=== PATIENT | female | born 1985 | race Caucasian/White ===

== ENCOUNTER → 2021-09-20 07:50 | Outpatient (BNVA) | payer BC, SELFPAY | PROVIDERS: Family Provider Family Medicine; Visit Provider Specialist | DX: R20.0 Anesthesia of skin (principal); R20.2 Paresthesia of skin; M79.645 Pain in left finger(s); M25.532 Pain in left wrist; G25.5 Other chorea; F17.200 Nicotine dependence, unspecified, uncomplicated | CPT/HCPCS: 95886; 95908; 99202; 99204 ==

== ENCOUNTER 2021-09-20 09:23 | Outpatient (CLI) | payer BC, SELFPAY ==
[2021-09-20 10:42] LABS: Thyroid Stimulating Hormone 1.16 uIU/mL (0.27-4.20)
[2021-09-20 13:05] LABS: Free T4 Free Thyroxine 1.21 ng/dL (0.82-1.77)
[2021-09-22 19:31] LABS: Erythrocyte Sedimentation Rate 2 mm/hr (0-15)
== END 2021-09-20 09:24 | disposition home or self-care (01) ==
PROVIDERS: PCP Physician Assistant Medical; Visit Provider Specialist
DX: R20.0 Anesthesia of skin (principal); R20.2 Paresthesia of skin
CPT/HCPCS: 84439; 84443; 85651

== ENCOUNTER 2025-09-20 22:13 | Emergency (ER) | payer OTHER, SELFPAY ==
[2025-09-20 22:15] VITALS: BP 147/76; PULSE 99; RESP 20; TEMP 36.4; O2SAT 100; BMI 21.0
--- OUTSIDE RECORDS SUMMARY | 2025-09-20 22:21 | XMS_ITS | Clinical Summary ---
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 90 Capsule 3 01/06/2021 Active Active Problems Problem Noted Date Diagnosed Date Tobacco use 08/22/2015 LUBA (generalized anxiety disorder) 10/01/2012 Depressive disorder 09/18/2012 Contraceptive management 07/11/2011 Heartburn 07/11/2011 Pelvic pain in female 07/11/2011 Immunizations Immunization Administration Dates Next Due Hepatitis B Vaccine 01/30/2002,08/10/1999,1998 INFLUENZA VACCINE QUADRIVALE NT 3 YR UP PF IM 09/16/2018 09/16/2019 Influenza Seasonal Unspecifi ed Formulation IM 08/26/2020 Family History Medical History Relation Name Comments Emphysema Father Hypertension Maternal Grandfather Cancer Maternal Uncle Relation Name Status Comments Father Maternal Grandfather Maternal Uncle Social History Tobacco Use Types Packs/Day Years Used Date Smoking Tobacco: Every Day Cigarettes Cigars Smokeless Tobacco: Never Tobacco Cessation:Ready to Q uit: No; Counseling Given: Yes Alcohol Use Standard Drinks/Week Comments No 0 (1 standard drink = 0.6 oz pur e alcohol) Comments No Sex and Gender Information Value Date Recorded Sex Assigned at Not on file Legal Sex Female 11:06 AM 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 SPECIALIST Gender Identity Not on file Sexual Orientation Not on file Occupation Industry Job Start Date Job End Date Not on file Not on file Not on file Not on file Last Filed Vital Signs Vital Sign Reading Time Taken Comments Blood Pressure 120/80 01/06/2021 1:51 PM PST SPECIALIST Pulse 110 01/06/2021 1:51 PM PST SPECIALIST Temperature 36.8 C (98.2 F) 01/06/2021 1:51 PM PST SPECIALIST Respiratory Rate 28 01/06/2021 1:51 PM PST SPECIALIST Oxygen Saturation 98% 01/06/2021 1:51 PM PST SPECIALIST Inhaled Oxygen Concentration - - Weight 51.2 kg (112 lb 12.8 oz) 01/06/2021 1:51 PM PST SPECIALIST Height 160 cm (5' 3 ) 01/06/2021 1:51 PM PST SPECIALIST Body Mass Index 19.98 01/06/2021 1:51 PM PST SPECIALIST Plan of Treatment Health Maintenance Due Date Last Done Comments DTAP/TDAP/TD VACCINES (1 - Tdap) 2005 HPV/Cotest (21-29) 2007 HPV VACCINES (1 - 3-dose SCDM series) 2013 CERVICAL CANCER SCREENING 2016 HPV/Cotest (30-65) 2016 PAP SMEAR 2016 Preventative Visit- Commercial 11/12/2024 INFLUENZA VACCINE (#1) 2025 08/26/2020, 2017 HEPATITIS B VACCINES Completed 01/30/2002, 08/10/1999, 07/06/1999 Insurance [employer](X) EXCHANGE Care Teams 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
--- OUTSIDE RECORDS SUMMARY | 2025-09-20 22:21 | XMS_ITS | Clinical Summary ---
Author Organization [facility] Address [address] Childsn: Epic Prelude ADT [place] [id number] Care Team Providers Care Wood Technologist Name Role Phone Edgard Flores MD Primary Care Provider [phone] Allergies Active Allergy Reactions Criticality Noted Date Comments Dicyclomine Swelling Low 10/24/2010 Levsin With Phenobarbital Anaphylaxis High 1 Medications gabapentin (NEURONTIN) 300 mg capsule Take 1 Capsule (300 mg) by mouth 3 times daily. 90 Capsule 3 3 Active Additional Information Patient not taking.Reported on 03/06/2024 cholecalciferol 1,250 mcg (50,000 unit) CapsuleIndicati ons:Vitamin D deficiency Take 1 Capsule (50,000 Units) by mouth every 7 days. 12 Capsule 3 4 Active Additional Information Patient not taking.Reported on 07/06/2025 DULoxetine 40 mg Capsule, Delayed Release(E.C.)In dications:Pares thesia of left upper extremity,LUBA (generalized anxiety disorder) take 1 capsule by mouth daily 90 Capsule 2 4 Active Additional Information Patient not taking.Reported on 07/06/2025 Active Problems Problem Noted Date Diagnosed Date Vitamin D deficiency 03/12/2024 Pure hypercholesterolemia 03/12/2024 Paresthesia of left upper extremity 03/06/2024 Colonic mass 08/20/2022 Tobacco use 08/22/2015 LUBA (generalized anxiety disorder) 10/01/2012 Depressive disorder 09/18/2012 Pelvic pain in female 07/11/2011 Heartburn 07/11/2011 Resolved Problems Problem Noted Date Diagnosed Date Resolved Date Acute diverticulitis 08/20/2022 024 Contraceptive management 07/11/2011 Encounters Date Type Department Care Team Description 09/02/2025 External Device Data ST[facility] ABSTRACTION Provider, Abstract 07/28/2025 External Device Data [facility] ABSTRACTION Provider, Abstract 07/28/2025 External Device Data [facility] ABSTRACTION Provider, Abstract 07/07/2025 External Device Data [facility] ABSTRACTION Provider, Abstract 07/06/2025 2:20 PM CDT Office Visit [facility] [address] [phone] Praveena Mckeon, ELADIO Tooth infection (Primary Dx) from Last 3 Months Immunizations Immunization Administration Dates Next Due Hepatitis B Vaccine 01/30/2002,08/10/1999,1998 INFLUENZA VACCINE QUADRIVALE NT 3 YR UP PF IM 09/16/2018 Influenza Seasonal Unspecifi ed Formulation IM 08/26/2020 Family History Medical History Relation Name Comments Emphysema Father Hypertension Maternal Grandfather Cancer Maternal Uncle Relation Name Status Comments Father Maternal Grandfather Maternal Uncle Social History Tobacco Use Types Packs/Day Years Used Date Smoking Tobacco: Every Day Cigarettes Smokeless Tobacco: Never Tobacco Cessation:Ready to Q uit: Not Asked; Counseling Given: Not Answered Alcohol Use Standard Drinks/Week Comments No 0 (1 standard drink = 0.6 oz pur e alcohol) Comments No Sex and Gender Information Value Date Recorded Sex Assigned at Not on file 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 Gender Identity Not on file Sexual Orientation Not on file Last Filed Vital Signs Vital Sign Reading Time Taken Comments Blood Pressure 133/87 07/06/2025 2:00 PM CDT Pulse 77 07/06/2025 2:00 PM CDT Temperature 36.8 C (98.2 F) 07/06/2025 2:00 PM CDT Respiratory Rate 17 07/06/2025 2:00 PM CDT Oxygen Saturation 100% 07/06/2025 2:00 PM CDT Inhaled Oxygen Concentration - - Weight 48.4 kg (106 lb 12.8 oz) 07/06/2025 2:00 PM CDT Height 160 cm (5' 3 ) 07/06/2025 2:00 PM CDT Body Mass Index 18.92 07/06/2025 2:00 PM CDT Plan of Treatment Health Maintenance Due Date Last Done Comments DTAP/TDAP/TD VACCINES (1 - Tdap) 2005 HPV/Cotest (21-29) 2007 HPV VACCINES (1 - 3-dose SCD M series) 2013 CERVICAL CANCER SCREENING 2016 HPV/Cotest (30-65) 2016 PAP SMEAR 2016 Preventative Visit- Commercial 11/12/2024 INFLUENZA VACCINE (#1) 2025 08/26/2020, 2017 HEPATITIS B VACCINES Completed 01/30/2002, 01/30/2002, 08/10/1999, Additional history exists [facility] Care Teams Wood Technologist Relationship Specialty Start Date End Date Edgard Flores MD [address] [facility] [address] [place] [address] PCP - General Family Practice 07/06/25
--- NOTE | 2025-09-20 22:44 | CTR_ITS ---
PROCEDURE INFORMATION: Exam: CT Abdomen And Pelvis With Contrast Exam date and time: 09/20/2025 11:16 PM Age: 40 years old Clinical indication: Pain and abnormal findings; Abnormal lab test; Elevated wbc; Abdominal pain; Generalized; Diffuse abd pain with leukocytosis. ; Additional info: Diffuse abdominal pain TECHNIQUE: Imaging protocol: Computed tomography of the abdomen and pelvis with contrast. Radiation optimization: All CT scans at this facility use at least one of these dose optimization techniques: automated exposure control; mA and/or kV adjustment per patient size (includes targeted exams where dose is matched to clinical indication); or iterative reconstruction. Contrast material: OMNI 350; Contrast volume: 80 ml; Contrast route: INTRAVENOUS (IV); COMPARISON: No relevant prior studies available. RADIATION DOSE METRICS: Total DLP (mGy-cm): 301.03 FINDINGS: Liver: Normal. No mass. Gallbladder and biliary ducts: Normal. No calcified stones. No ductal dilation. Pancreas: Normal. No ductal dilation. Spleen: Normal. No splenomegaly. Adrenal glands: Normal. No mass. Kidneys and ureters: Normal. No hydronephrosis. Stomach and bowel: Diverticulosis, without acute diverticulitis. No small bowel obstruction. No free air. Appendix: No evidence of appendicitis. Intraperitoneal space: See Stomach and bowel finding. Vasculature: Unremarkable. No abdominal aortic aneurysm. Lymph nodes: Unremarkable. No enlarged lymph nodes. Urinary bladder: Mild wall thickening of the urinary bladder, correlate for UTI. Reproductive: Unremarkable as visualized. Bones/joints: Unremarkable. No acute fracture. Soft tissues: Unremarkable. CT/CT abdomen pelvis w con* [id number] IMPRESSION: 1. Diverticulosis, without acute diverticulitis. No small bowel obstruction. No free air. 2. Mild wall thickening of the urinary bladder, correlate for UTI.
--- NOTE | 2025-09-20 22:44 | ED_ITS ---
HPI - Abdominal Pain 2 General: Chief Complaint: Abdominal Pain Stated Complaint: ABD Time Seen by Provider: 09/20/25 22:25 Source: patient Mode of arrival: ambulatory Limitations: no limitations History of Present Illness: Patient is a 40-year-old female who presents to ED today with a complaint of diffuse abdominal pain over the past 3 days. Patient feels like her pain is sharp and crampy in nature and has progressively worsened since onset. She has not had any episodes of vomiting. She denies any changes in her bowel habits. She does feel like her pain is worse with movement, coughing, laughing, car rides, etc. She has not found any alleviating factors to her discomfort. She does states she is still able to eat and drink. She is passing flatulence. She has not been running fevers. Denies previous abdominal surgeries. She states her LMP was 3 weeks ago. She states she is sexually monogamous with her of 20 years-no concern for STI. Denies vaginal odor or vaginal discharge. She denies dysuria, frequency, urgency, or flank pain. Looking at previous documentation-she did see Dr. Granados back in 2021 following an episode of diverticulitis. MD elicited complaint: abdominal pain Pertinent past history: other (diverticulitis) Onset (ago): day(s) Pain Consistency: constant Location: Diffuse Severity: severe Pain scale (0-10): 10 Quality: cramping, stabbing and sharp Radiation: none Migration to: no migration Exacerbating factors: movement Relieving factors: nothing Associated Symptoms: Reports no associated symptoms and GI cramping; Denies change in bowel habits, chills, constipation, diarrhea, dysuria, fever(s), hematochezia, hematemesis, melena, nausea and vomiting Related Data Previous Rx's ?Medication ?Instructions ?Recorded ciprofloxacin HCl 500 mg tablet 500 mg PO Q12H #14 tab s 09/20/25 (Cipro) metronidazole 500 mg tablet 500 mg PO BID 7 days #14 t abs 09/20/25 Allergies Allergy/AdvReac Type Severity Reaction Status Date / Time lovastatin Allergy Severe leg cramps Verified 09/08/22 09:41 Review of Systems 2 Const: Denies: fever(s), chills, body aches, fatigue or malaise Card: Denies: chest pain Resp: Denies: dyspnea GI: Reports: abdominal pain and GI cramping; Denies: nausea, vomiting, hematemesis, diarrhea, constipation, change in bowel habits, hematochezia or melena : Denies: flank pain, difficulty voiding, dysuria, urinary frequency, urinary urgency, urinary hesitancy, genital pruritis, vaginal odor, vaginal bleeding or vaginal discharge Musc: Denies: back pain Skin/Breast: Denies: rash Neuro: Denies: headache(s), numbness in extremities, weakness in extremities, sensory changes or dizziness PFSH ED 2 PFSH: Medical History Anxiety Wrist drop (acquired) Social History Smoking and tobacco/nicotine status: current every day tobacco/nicotine user Second hand smoke exposure: No Alcohol intake: never Substance/Drug Use: never Physical Exam 2 Const: COMMON NORMALS: average body habitus, patient oriented x3, no limitations, healthy appearing, alert and well nourished GENERAL APPEARANCE: cooperative and in distress (appears uncomfortable secondary to pain-holding abdomen) Eye: COMMON NORMALS: no scleral icterus Resp: COMMON NORMALS: normal respiratory effort and clear to auscultation bilaterally AUSCULTATION: clear to auscultation bilaterally Cardio: COMMON NORMALS: regular rate and regular rhythm RATE: regular rate RHYTHM: regular rhythm GI: COMMON NORMALS: Normal to inspection, nondistended, normoactive bowel sounds present and Soft to palpation INSPECTION: Yes normal to inspection AUSCULTATION: Yes normoactive bowel sounds PALPATION: Yes Soft to palpation, Yes Tenderness to palpation present (GI) (diffusely), Yes Guarding due to palpation present (GI) and No Rigid due to palpation : COMMON NORMALS: Yes no CVA tenderness BLADDER/KIDNEY EXAM: Yes no CVA tenderness Back/Pelvis: COMMON NORMALS: no CVA tenderness Extremity: GENERAL: Yes normal exam except as noted Neuro: DAV COMA SCALE: document GCS findings Dav coma scale eye opening: Spontaneous Dav coma scale verbal response: Orientated Dav coma scale motor response: Obey commands Dav coma scale total score: 15 COMMON NORMALS: patient oriented x3, moves all extremities, no focal motor deficits and no sensory deficits noted SENSORIUM/ORIENTATION: Yes alert Skin: COMMON NORMALS: no rashes or lesions noted GENERAL SKIN EXAM: no rashes or lesions noted Course 2 ED course: 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 We will attempt 1g IV acetaminophen to see if this will help with her discomfort. Vital Signs: Vital signs: Vital Signs Temperature 97.6 F 09/20/25 22:15 Pulse Rate 99 09/20/25 22:15 Respiratory Rate 20 H 09/20/25 22:15 Blood Pressure 147/76 09/20/25 22:15 Pulse Oximetry 100 09/20/25 22:15 MDM - Abdominal Pain Medical Decision Making Patient is a 40-year-old female here for complaints of crampy, sharp abdominal pain. She appeared visibly uncomfortable on initial examination. 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 She did receive IV Tylenol and on reassessment, appears much more comfortable. Her vital signs are stable. Labs show white count of 13.86. The remainder of her labs are unremarkable. UA was grossly contaminated. She was not complaining of dysuria, frequency, urgency, or flank pain. Declined cath. CT imaging was obtained due to progressively worsening discomfort and rating her pain 10/10. CT imaging showing diverticulosis without obvious evidence of diverticulitis. She did have mild wall thickening of the urinary bladder. I think given her presentation clinically and her leukocytosis, I will opt to place her on Cipro/Flagyl. This should cover for diverticulitis as well as a potential UTI. Recommend follow-up with primary care later this week. Return to ED precautions discussed. Differential Diagnosis Likely abdominal pain, acute appendicitis, constipation, diverticulitis, endometriosis, gastroenteritis, pancreatitis and small bowel obstruction Medical Records I reviewed the patient's medical records. Lab Data I reviewed the patient's lab results. 09/20/25 22:43 09/20/25 22:43 Labs/Radiology: Radiology Impressions Abdomen/Pelvis CT 09/20/25 22:44 IMPRESSION: 1. Diverticulosis, without acute diverticulitis. No small bowel obstruction. No free air. 2. Mild wall thickening of the urinary bladder, correlate for UTI. Laboratory Results WBC 13.86 10^3/uL (3.29-11.43) H 09/20/25 22:43 RBC 4.07 10^6/uL (3.85-5.65) 09/20/25 22:43 Hgb 13.10 g/dL (11.27-16.99) 09/20/25 22:43 Hct 39.3 % (36-47) 09/20/25 22:43 MCV 96.6 fl (85-98) 09/20/25 22:43 MCH 32.2 pg (27-33) 09/20/25 22:43 MCHC 33.3 g/dL (30-55) 09/20/25 22:43 RDW 12.4 % (12.1-15.1) 09/20/25 22:43 Plt Count 358 10^3/cmm (157-399) 09/20/25 22:43 MPV 9.1 fL (7.4-10.4) 09/20/25 22:43 Neut % (Auto) 82.7 % 09/20/25 22:43 Lymph % (Auto) 8.4 % 09/20/25 22:43 [place] % (Auto) 8.4 % 09/20/25 22:43 Eos % (Auto) 0.1 % 09/20/25 22:43 Baso % (Auto) 0.1 % 09/20/25 22:43 Neut # (Auto) 11.45 10^3/uL (1.8-7.7) H 09/20/25 22:43 Lymph # (Auto) 1.2 10^3/uL (0.8-4.8) 09/20/25 22:43 [place] # (Auto) 1.2 10^3/uL (0.2-0.9) H 09/20/25 22:43 Eos # (Auto) 0.0 10^3/uL (0.0-0.8) 09/20/25 22:43 Baso # (Auto) 0.0 10^3/uL (0.0-0.1) 09/20/25 22:43 Nucleated RBC % (auto) 0 % 09/20/25 22:43 Nucleated RBCs # 0.0 /100WBC 09/20/25 22:43 Sodium 137 mmol/L (136-145) 09/20/25 22:43 Potassium 3.5 mmol/L (3.5-5.1) 09/20/25 22:43 Chloride 100 mmol/L (98-107) 09/20/25 22:43 Carbon Dioxide 24 mmol/L (22-29) 09/20/25 22:43 Anion Gap 16.5 (5-19) 09/20/25 22:43 BUN 8 mg/dL (6-20) 09/20/25 22:43 Creatinine 0.5 mg/dL (0.5-0.9) 09/20/25 22:43 GFR Calculation 137.4 mL/min (90-130) H 09/20/25 22:43 Glucose 110 mg/dL (65-115) 09/20/25 22:43 Calculated Osmolality 283 mOsm/kg (285-295) L 09/20/25 22:43 Calcium 9.5 mg/dL (8.5-10.5) 09/20/25 22:43 Total Bilirubin 0.5 mg/dL (0.15-1.2) 09/20/25 22:43 AST 17 U/L (0-32) 09/20/25 22:43 ALT 17 U/L (0-33) 09/20/25 22:43 Alkaline Phosphatase 89 U/L (35-105) 09/20/25 22:43 Total Protein 7.8 g/dL (6.6-8.7) 09/20/25 22: Albumin 4.8 g/dL (3.5-5.2) 09/20/25 22:43 Globulin 3.0 g/dL (1.3-4.6) 09/20/25 22:43 Lipase 20 U/L (13-60) 09/20/25 22:43 HCG, Qual Negative (Negative) 09/20/25 22: Urine Color [place] (Yellow) A 09/20/25: Urine Appearance Cloudy (CLEAR) A 09/20/25: Urine pH 8.5 (5-7) A 09/20/25: Ur Specific [place] 1.023 (1.005-1.030) 09/20/25: Urine Protein 1+ (Negative) A 09/20/25 22: Urine Glucose (UA) Negative (Normal) 09/20/25: Urine Ketones Negative (Negative) 11/09/25 22:43 Urine Blood 2+ (Negative) A 09/20/25 22:43 Urine Nitrate Negative (Negative) 09/20/25 22:43 Urine Bilirubin Negative (Negative) 09/20/25 22:43 Urine Urobilinogen 1.0 mg/dL (Negative) 09/20/25 22:43 Ur Leukocyte Esterase 2+ (Negative) A 09/20/25 22:43 Urine RBC 0-2 /hpf (0-2) 09/20/25 22:43 Urine WBC 21-50 /hpf (0-5) H 09/20/25 22:43 Ur Squamous Epith Cells 21-50 /hpf (0-5) H 09/20/25 22:43 Amorphous Sediment Not Reportable 09/20/25 22:43 Urine Bacteria 4+ /hpf (NONE) H 09/20/25 22:43 Hyaline Casts 4.11 /lpf 09/20/25 22:43 All radiology interpretation(s) finalized by discharge Discharge Plan Discharge Patient Disposition: Home Clinical Impression: Diffuse abdominal pain, Diverticulosis Condition: Stable Prescriptions: New metronidazole 500 mg tablet 500 mg PO BID 7 Days Qty: 14 0RF ciprofloxacin HCl [Cipro] 500 mg tablet 500 mg PO Q12H Qty: 14 0RF Discharge Orders: Discharge ED (Routine); Ordered 09/20/25 Ordered By: Praveena Duke Referrals: Nicole Enriquez FNP [Primary Care Provider] Patient Instructions: Diverticulitis (DC), Diverticulosis (ED), Diverticulosis (DC), Abdominal Pain (ED), Patient Portal & Lauryn Instructions Activity Restrictions/Additional Instructions: As we discussed, your blood work overall was nonactionable. Your urinalysis was grossly contaminated. CT scan showing evidence of diverticulosis but did not show obvious diverticulitis however given your symptoms, I think it is reasonable to treat you with antibiotics. I would like you to follow-up with primary care later this week for reevaluation. As we discussed, I would like you to return to the emergency department for worsening or uncontrollable abdominal pain, repetitive episodes of vomiting, inability to tolerate your antibiotics, bloody stools, fevers, generally feeling worse or unwell, severe flank pain, or any other concerns you may have. If you begin to feel better soon. 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
[2025-09-20 22:52] LABS: Hematocrit 39.3 % (36-47); Hemoglobin 13.10 g/dL (11.27-16.99); Mean Corpuscular HGB Conc 33.3 g/dL (30-55); Mean Corpuscular Hemoglobin 32.2 pg (27-33); Mean Corpuscular Volume 96.6 fl (85-98); Nucleated Red Blood Cells % 0 %; Platelet Count 358 10^3/cmm (157-399); Red Blood Count 4.07 10^6/uL (3.85-5.65); White Blood Count 13.86 10^3/uL (3.29-11.43)
[2025-09-20 23:01] LABS: Glucose Urine UA Negative (Normal); Nitrate Urine Negative (Negative); Specific Gravity, Urine 1.023 (1.005-1.030)
[2025-09-20 23:03] LABS: Add Urine Microscopic? YES; Universal Test for UA Present (0)
[2025-09-20 23:04] LABS: HCG, Serum Qual Negative (Negative)
[2025-09-20] MEDS: ondansetron 2 mg/ML SDV 2 mL 4 MG IVP (23:04)
[2025-09-20] MEDS: acetaminophen 1,000 MG/100 ML PIGGYBACK 400 MG IV (23:04)
[2025-09-20 23:10] LABS: Alanine Aminotransferase 17 U/L (0-33); Albumin Level 4.8 g/dL (3.5-5.2); Alkaline Phosphatase 89 U/L (35-105); Anion Gap 16.5 (5-19); Aspartate Amino Transferase 17 U/L (0-32); Blood Urea Nitrogen 8 mg/dL (6-20); Calcium 9.5 mg/dL (8.5-10.5); Carbon Dioxide 24 mmol/L (22-29); Chloride 100 mmol/L (98-107); Creatinine Clr Calc Pharmacy 121.4425; Globulin 3.0 g/dL (1.3-4.6); Glucose 110 mg/dL (65-115); Lipase 20 U/L (13-60); Osmolality Calculated 283 mOsm/kg (285-295); Potassium 3.5 mmol/L (3.5-5.1); Sodium 137 mmol/L (136-145); Total Protein 7.8 g/dL (6.6-8.7)
[2025-09-20] MEDS: iohexol 350 mg/mL 500 mL Btl (per mL) IV (23:17)
[2025-09-21 00:10] VITALS: RESP 18; O2SAT 98
[2025-09-21] MEDS: oxyCODONE-APAP 5-325 mg Tablet 1 TAB PO (00:10)
[2025-09-21 00:15] VITALS: BP 126/72; PULSE 84; O2SAT 99
== END 2025-09-21 00:14 | disposition home or self-care (01) ==
PROVIDERS: Emergency Provider Physician Assistant; PCP Nurse Practitioner Family
DX: R10.9 Unspecified abdominal pain (principal); K57.90 Diverticulosis of intestine, part unspecified, without perforation or abscess without bleeding; Z72.0 Tobacco use
CPT/HCPCS: 74177; 80053; 81001; 83690; 84703; 85025; 96365; 96375; 99285; J0131; J2405; J7030; J9999